=== PATIENT | female | born 1990 | race Caucasian/White ===

== ENCOUNTER 2024-05-03 08:35 | Emergency (ER) | payer BC, SELFPAY ==
[2024-05-03 08:40] VITALS: BP 152/89; PULSE 90; RESP 16; TEMP 36.4; O2SAT 99; BMI 35.3
--- NOTE | 2024-05-03 08:47 | ED_ITS ---
HPI - General Adult General Time Seen by Provider: 08:47 Date Seen: 05/03/24 Chief complaint: Shortness of Breath/Dyspnea Stated complaint: sharp pain in back/ difficulty breathing Time Seen by Provider: 05/03/24 08:47 Source: patient and RN notes reviewed Mode of arrival: ambulatory Limitations: no limitations History of Present Illness HPI narrative: This 33-year-old female is presenting to the ER with concern of sudden chest pain and pain into her back associated with breathing. She was just getting ready for the morning, pain just came on suddenly about 7:45 a.m. today. There is no reported trauma, she does not recollect doing anything that may have given her muscular issues over the weekend. She did travel to [place] about a month ago. She has had a grandparent that from a pulmonary embolus which made her concerned. The pain is on the right upper side of her back, she feels it in the right chest. The pain is always there but is certainly worse with inspiration. She has not been sick with any cough or cold symptoms. She has not had anything like this before. There is no chance for her patient's report. Related Data Previous Rx's ?Medication ?Instructions ?Recorded cyclobenzaprine 10 mg tablet 10 mg PO TID PRN muscle spasm #15 05/03/24 tabs ketorolac 10 mg tablet 10 mg PO Q6H PRN pain #20 tabs 05/03/24 Allergies Allergy/AdvReac Type Severity Reaction Status Date / Time No Known Drug Allergies Allergy Verified 05/03/24 09:35 Review of Systems Status of ROS: Reports: 6 or more systems reviewed and unremarkable except as noted in History and below [facility] Social History Smoking Status: Never smoker How often do you have a drink containing alcohol: 2-3 times a week How many standard drinks containing alcohol do you have on a typical day: 1 or 2 How often do you have six or more drinks on one occasion: Never AUDIT-C Alcohol total score: 3 Non-prescribed substance use: denies use Exam Const: Vital Signs, click to edit/add: Vital Signs - 24 hr 05/03/24 08:40 05/03/24 10:00 05/03/24 10:00 Temperature 97.5 F L Pulse Rate [Pulse Oximeter] 90 99 Respiratory Rate 16 16 Blood Pressure [Ri ght Upper Arm] 152/89 H 133/92 H Pulse Oximetry 99 99 100 Oxygen Delivery Me thod Room Air Room Air This 33-year-old female is alert, interactive, no apparent distress. She does seem to be mildly anxious. Sclera clear, symmetrical facial function, able to speak in complete sentences. She is not tachypneic. Lungs actually are clear, good air entry, no wheezing or crackles. CV regular rate and rhythm, no murmur, normal S1-S2, no S3-S4. Abdomen soft, nontender. She has no lower extremity edema. Patient is ambulatory into the ED of her own accord. There is no midline tenderness of her back, no reproducible tenderness in her upper back. Documenting provider has reviewed patient's vital signs: yes Course Course ED Course: Patient has just over an hour of right back and chest pain, some pleuritic component. She does have somewhat recent prolonged travel flying from [place] within the last 4 weeks. I do think thromboembolic disease does need to be a consideration. Have discussed doing screening D-dimer versus just doing chest CT PE protocol which patient has opted to do. I do think this is appropriate given her history and family history. Will also have her monitored on pulse oximetry, get full complement of labs. Will look at an EKG as well as a troponin but doubt any ischemic cardiac disease given presentation. Reevaluation(s) Time of Reevaluation #1: 10:02 Reevaluation #1: Patient CT is showing significant gallbladder pathology with gallstones, poss ibly thickened wall. Will obtain ultrasound. Have added on a lipase, her chemistries are not back yet. Will update her that she will be getting an ultrasound and insure that she does not need pain management. She notes that pain is somewhat improved lying still. There is still pleuritic component. She declines pain medicine, even Toradol at this time. She knows she will be proceeding with an ultrasound, have reviewed that this might be her gallbladder. Time of Reevaluation #2: 11:34 Reevaluation #2: Have provided patient with a copy of her ultrasound report as well. Her labs are reassuring, her pain is better here. Does seem to be a respiratory and positional component with this which would not be as typical for biliary colic. She is understanding that this may be atypical presentation of gallbladder disease. She is in agreement with trial for outpatient management. Will send her with some Toradol and Flexeril for potential musculoskeletal issues, pleurisy is in differential as well and Toradol would help that. She is not meeting criteria for pericarditis. Consultations Consultation #1: Reviewed patient's case with general surgeon Dr. Francis. She agrees with attempted outpatient management, treat for possible musculoskeletal versus pleurisy. She does recommend a low-fat diet in case this might be gallbladder. She would like to see patient in follow-up in clinic, will give phone number for that. Will give patient signs and symptoms for return, discuss possible biliary colic as well. Time: 11:14 Vital Signs Vital signs: Initial Vital Signs Temperature 97.5 F L 05/03/24 08:40 Temperature Source Oral 05/03/24 08:40 Pulse Rate 90 05/03/24 08:40 Respiratory Rate 16 05/03/24 08:40 Blood Pressure 152/89 H 05/03/24 08:40 Blood Pressure Mean 110 H 05/03/24 08:40 Blood Pressure Position Sitting 05/03/24 08:40 Pulse Oximetry 99 05/03/24 08:40 Oxygen Delivery Method Room Air 05/03/24 08:40 Vital Signs Temperature 97.5 F L 05/03/24 08:40 Pulse Rate 90 05/03/24 08:40 Respiratory Rate 16 05/03/24 08:40 Blood Pressure 152/89 H 05/03/24 08:40 Pulse Oximetry 99 05/03/24 08:40 Oxygen Delivery Method Room Air 05/03/24 08:40 Temperature 97.5 F L 05/03/24 08:40 Pulse Rate 99 05/03/24 10:00 Respiratory Rate 16 05/03/24 10:00 Blood Pressure 133/92 H 05/03/24 10:00 Pulse Oximetry 100 05/03/24 10:00 Oxygen Delivery Method Room Air 05/03/24 10:00 Medical Decision Making Lab Data Lab results reviewed: Yes I reviewed the patient's lab results Labs: Lab Results 05/03/24 05/03/24 Range/Units 09:25 10:02 WBC 7.00 (4.50-11.00) K/uL RBC 4.44 (4.00-5.20) m/uL Hgb 13.0 (12.0-16.0) gm/dL Hct 39.7 (33.0-51.0) % MCV 89 (80-100) fL MCH 29 (26-34) pg MCHC 33 (32-36) gm/dL RDW Coeff of Peri 12.4 (11.5-15.5) % Plt Count 323 (140-440) K/uL Neut % (Auto) 62.7 (42.0-72.0) % Lymph % (Auto) 27.3 (20-44) % Cole % (Auto) 8.4 (0.0-11.0) % Eos % (Auto) 1.1 (0.0-7.0) % Baso % (Auto) 0.4 (0.0-3.0) % Neut # (Auto) 4.38 (1.7-7.0) K/uL Lymph # (Auto) 1.91 (0.90-2.90) K/uL Cole # (Auto) 0.60 (0.00-0.90) K/UL Eos # (Auto) 0.08 (0.00-0.50) K/uL Baso # (Auto) 0.03 (0.00-0.30) K/uL Abs Immat Gran (auto) 0.01 (0.00-0.30) K/uL Imm/Tot Granulo (auto) 0.1 % D-Dimer Quant (PE/DVT) < 0.27 (0.00-0.50) ug/ml VBG pH 7.424 (7.32-7.43) VBG pCO2 33 L (40-50) mmHG VBG pO2 46.8 (25-47) mmHG VBG HCO3 22 (21-28) mmol/L Sodium 136 (135-149) mmol/L Potassium 3.8 (3.6-5.1) mmol/L Chloride 106 (96-114) mmol/L Carbon Dioxide 21 (20-32) mmol/L Anion Gap 9 (7-15) mEq/L BUN 9 (5-24) mg/dL Creatinine 0.6 (0.5-1.5) mg/dL Estimated Creat Clear 112.38 Estimated GFR 123 ml/min Glucose 96 (60-115) mg/dL Calcium 9.3 (8.4-10.6) mg/dL Total Bilirubin 0.2 (0.1-1.5) mg/dL AST 21 (12-35) U/L ALT 15 (4-35) U/L Alkaline Phosphatase 55 (40-150) U/L Troponin I < 0.01 L (0.01-0.04) ng/mL C-Reactive Protein 0.6 (0.5-1.0) mg/dL NT-Pro-B Natriuret Pep 85 pg/mL Total Protein 7.2 (6.0-8.3) g/dL Albumin 4.3 (3.3-5.0) g/dL Lipase 53 (23-300) U/L Lab Acknowledgement Test Added Imaging Data CT scan - chest: Attestation: I have reviewed the pertinent imaging results. Radiologist's impression: Patient: JONN VICTOR Facility:?[facility] Patient ID:?[id number] Site Patient ID:?[id number]. Site :?1990 Study:?CT-Chest Angio W/ 95CC [id number] PE PROTOCOL-05/03/2024 9:44:43 AM Ordering Physician:?Anamaria Middleton Final Report: INDICATION: Right-sided pain. Recent travel. COMPARISON: None TECHNIQUE: : CT examination of the chest was performed with the uneventful intravenous administration of 95 cc of Omnipaque 350 while thin axial sections were obtained from above the apices of the lungs to the lung bases. The examination was timed as a pulmonary artery angiogram. Please note that all CT scans at this facility use dose modulation, iterative reconstruction, and/or weight-based dosing when appropriate to reduce radiation dose to as low as reasonably achievable. FINDINGS: : HEART and MEDIASTINUM: The heart size is normal. There is no mediastinal or hilar adenopathy or mass. There is no pericardial effusion. PULMONARY ARTERIAL CIRCULATION: There is no visible intraluminal filling defect to suggest pulmonary embolus. LUNGS and PLEURAL SPACES: The lungs show no focal consolidation or mass. Trace basilar atelectasis. The airways appear normal.There is no pleural effusion, pneumothorax or pleural based mass. VISUALIZED UPPER ABDOMEN: The gallbladder is filled with stones and there may be wall thickening. Sonography is advised. OSSEOUS STRUCTURES: Age-appropriate appearance. No acute fracture or destructive process. TUBES and LINES: None. IMPRESSION: 1. No finding of pulmonary embolus. 2. Lungs and pleural spaces appear normal other than trace basilar atelectasis 3. The gallbladder is filled with stones and there may be wall thickening. Sonography is advised. Please note that all CT scans at this facility use dose modulation, iterative reconstruction, and/or weight-based dosing when appropriate to reduce radiation dose to as low as reasonably achievable. Dictated by Fritz Waite MD @ 05/03/2024 9:55:52 AM (Electronic Signature) US - abdomen: Attestation: I have reviewed the pertinent imaging results. Radiologist's impression: Patient: JONN VICTOR Facility:?[facility] Patient ID:?[id number] Site Patient ID:?[id number]. Site :?1990 Study:?US-Abdomen RUQ-05/03/2024 10:47:36 AM Ordering Physician:?Anamaria Middleton Final Report: Indication: Abnormal CT with cholelithiasis and right-sided pain noted on a chest CT. Technique: Sonography of the abdomen was performed limited to the structures discussed below Comparison: The CT of earlier the same day Findings: Normal-sized liver. No focal mass or biliary ductal dilation. The common duct measures 4 millimeters which is normal Gallbladder wall thickness is normal at 3 millimeters. No definite intramural edema or pericholecystic fluid. No reported sonographic Avery`s sign. The gallbladder is contracted containing too numerous to count stones. The pancreas as visualized appears normal. The right kidney is unremarkable in size and appearance measuring 9.5 x 5.2 x 3.9 centimeters. No hydronephrosis. Cortical thickness normal at 1.6 centimeters. Impression: There is cholelithiasis. There is no ultrasound finding to suggest acute cholecystitis or common duct obstruction. Dictated by Fritz Waite MD @ 05/03/2024 10:58:23 AM (Electronic Signature) ECG Data Attestation: I personally reviewed and interpreted this ECG as follows: (Normal sinus rhythm with sinus arrhythmia, 83 beats per minute. No ischemic change, no infarct.) Prior ECG tracings: not available for review Discharge Plan Discharge Clinical Impression: Right-sided chest pain Cholelithiasis Qualifiers: Cholelithiasis location: gallbladder Cholecystitis presence: without cholecystitis Biliary obstruction: without biliary obstruction Qualified Code(s): K80.20 - Calculus of gallbladder without cholecystitis without obstruction Patient Disposition: Home, Self-Care Condition: Stable Instructions: Pleurisy (ED), Gallstones (ED), Low Fat Diet (ED), Noncardiac Chest Pain (ED) Additional Instructions: Follow low-fat diet. It is unclear if your current symptoms might be coming from your gallbladder or biliary colic. Some features are consistent with pleurisy. It is possible that it could be musculoskeletal as well. We will heavy try Toradol and Flexeril for symptom control. You need to follow-up with general surgery in clinic, phone number to schedule is [phone]. In the meantime, if you have worsening symptoms, develops fever with these symptoms, have abdominal pain or nausea vomiting develops or further concerns, please return for further evaluation. Activity Level: Activity as Tolerated Discharge Diet: Low Fat/Low Cholesterol Prescriptions: New ketorolac 10 mg tablet 10 mg PO Q6H PRN (Reason: pain) Qty: 20 0RF Rx Instructions: maximum total duration of 5 days from all oral, intranasal, or parenteral formulations cyclobenzaprine 10 mg tablet 10 mg PO TID PRN (Reason: muscle spasm) Qty: 15 0RF Follow Up/Referrals: Sandra Gregory DO [Primary Care Provider] - Stand Alone Forms: [email or web address] Info Instructions
--- NOTE | 2024-05-03 08:52 | CRLHL7_ITS ---
For Patients: As a result of the Century Cures Act, medical imaging exams and procedure reports are released immediately into your electronic medical record. You may view this report before your referring provider. If you have questions, please contact your health care provider. INDICATION: Right-sided pain. Recent travel. COMPARISON: None TECHNIQUE: : CT examination of the chest was performed with the uneventful intravenous administration of 95 cc of Omnipaque 350 while thin axial sections were obtained from above the apices of the lungs to the lung bases. The examination was timed as a pulmonary artery angiogram. Please note that all CT scans at this facility use dose modulation, iterative reconstruction, and/or weight-based dosing when appropriate to reduce radiation dose to as low as reasonably achievable. FINDINGS: : HEART and MEDIASTINUM: The heart size is normal. There is no mediastinal or hilar adenopathy or mass. There is no pericardial effusion. PULMONARY ARTERIAL CIRCULATION: There is no visible intraluminal filling defect to suggest pulmonary embolus. LUNGS and PLEURAL SPACES: The lungs show no focal consolidation or mass. Trace basilar atelectasis. The airways appear normal.There is no pleural effusion, pneumothorax or pleural based mass. VISUALIZED UPPER ABDOMEN: The gallbladder is filled with stones and there may be wall thickening. Sonography is advised. OSSEOUS STRUCTURES: Age-appropriate appearance. No acute fracture or destructive process. TUBES and LINES: None. IMPRESSION: 1. No finding of pulmonary embolus. 2. Lungs and pleural spaces appear normal other than trace basilar atelectasis 3. The gallbladder is filled with stones and there may be wall thickening. Sonography is advised. Please note that all CT scans at this facility use dose modulation, iterative reconstruction, and/or weight-based dosing when appropriate to reduce radiation dose to as low as reasonably achievable. Dictated by Fritz Waite MD @ 05/03/2024 9:55:52 AM (Electronically Signed)
[2024-05-03 09:37] LABS: HCO3 VBG 22 mmol/L (21-28); PCO2 VBG 33 mmHG (40-50); PO2 VBG 46.8 mmHG (25-47); pH VBG 7.424 (7.32-7.43)
[2024-05-03 09:44] LABS: Basophils Absolute Auto 0.03 K/uL (0.00-0.30); Basophils Percent Auto 0.4 % (0.0-3.0); Eosinophils Absolute Auto 0.08 K/uL (0.00-0.50); Eosinophils Percent Auto 1.1 % (0.0-7.0); Hematocrit 39.7 % (33.0-51.0); Immature Granulocytes Abs Auto 0.01 K/uL (0.00-0.30); Immature Granulocytes Pct Auto 0.1 %; Lymphocytes Absolute Auto 1.91 K/uL (0.90-2.90); Lymphocytes Percent Auto 27.3 % (20-44); Mean Corpuscular HGB Conc 33 gm/dL (32-36); Mean Corpuscular Hemoglobin 29 pg (26-34); Mean Corpuscular Volume 89 fL (80-100); Monocytes Percent Auto 8.4 % (0.0-11.0); Neutrophils Absolute Auto 4.38 K/uL (1.7-7.0); Neutrophils Percent Auto 62.7 % (42.0-72.0); Platelet Count* 323 K/uL (140-440); RDW Coefficient of Variation % 12.4 % (11.5-15.5); Red Blood Count 4.44 m/uL (4.00-5.20)
[2024-05-03 09:52] LABS: Slide Review Reflex No
[2024-05-03 09:55] LABS: Albumin* 4.3 g/dL (3.3-5.0); Chloride* 106 mmol/L (96-114)
[2024-05-03 09:56] LABS: Potassium* 3.8 mmol/L (3.6-5.1); Sodium* 136 mmol/L (135-149)
[2024-05-03 09:58] LABS: Bilirubin Total* 0.2 mg/dL (0.1-1.5); Creatinine* 0.6 mg/dL (0.5-1.5); Est. Creatinine Clearance* 112.38; Estimated Glomerular Filt Rate 123 ml/min
[2024-05-03 09:59] LABS: Alanine Aminotransferase* 15 U/L (4-35); Alkaline Phosphatase* 55 U/L (40-150); Anion Gap 9 mEq/L (7-15); Aspartate Amino Transferase* 21 U/L (12-35); Blood Urea Nitrogen* 9 mg/dL (5-24); Calcium* 9.3 mg/dL (8.4-10.6); Carbon Dioxide* 21 mmol/L (20-32); Glucose* 96 mg/dL (60-115); Total Protein* 7.2 g/dL (6.0-8.3)
[2024-05-03 10:00] VITALS: BP 133/92; PULSE 99; RESP 16; O2SAT 100; O2SAT 99
[2024-05-03 10:02] LABS: C Reactive Protein* 0.6 mg/dL (0.5-1.0)
--- NOTE | 2024-05-03 10:02 | CRLHL7_ITS ---
For Patients: As a result of the Century Cures Act, medical imaging exams and procedure reports are released immediately into your electronic medical record. You may view this report before your referring provider. If you have questions, please contact your health care provider. Indication: Abnormal CT with cholelithiasis and right-sided pain noted on a chest CT. Technique: Sonography of the abdomen was performed limited to the structures discussed below Comparison: The CT of earlier the same day Findings: Normal-sized liver. No focal mass or biliary ductal dilation. The common duct measures 4 millimeters which is normal Gallbladder wall thickness is normal at 3 millimeters. No definite intramural edema or pericholecystic fluid. No reported sonographic Avery`s sign. The gallbladder is contracted containing too numerous to count stones. The pancreas as visualized appears normal. The right kidney is unremarkable in size and appearance measuring 9.5 x 5.2 x 3.9 centimeters. No hydronephrosis. Cortical thickness normal at 1.6 centimeters. Impression: There is cholelithiasis. There is no ultrasound finding to suggest acute cholecystitis or common duct obstruction. Dictated by Fritz Waite MD @ 05/03/2024 10:58:23 AM (Electronically Signed)
[2024-05-03 10:07] LABS: D Dimer Quantitative* < 0.27 ug/ml (0.00-0.50)
[2024-05-03 10:13] LABS: NT Pro B Type NatriureticPept* 85 pg/mL; Troponin I* < 0.01 ng/mL (0.01-0.04)
[2024-05-03 10:34] LABS: Lipase* 53 U/L (23-300)
== END 2024-05-03 11:47 | disposition home or self-care (01) ==
PROVIDERS: Emergency Provider Family Medicine; PCP Family Medicine
DX: K80.20 Calculus of gallbladder without cholecystitis without obstruction (principal)
CPT/HCPCS: 36415; 71275; 76705; 80053; 82803; 83690; 83880; 84484; 85025; 85379; 86140; 93005; 94761; 99284; 99285; Q9967

== ENCOUNTER 2024-05-25 07:37 | Day surgery (SDC) | payer BC, SELFPAY ==
[2024-05-25] VITALS (13 sets, daily range): BP systolic 94–135; BP diastolic 52–96; PULSE 79–114; RESP 12–16; TEMP 36.3–36.6; O2SAT 95–100; BMI 34.8
[2024-05-25] MEDS: 0.9 % SODIUM CHLORIDE 500 ML 500 ML 100 ML IV (07:59)
[2024-05-25 08:11] LABS: Ur HCG Qualitative* Negative (Negative)
[2024-05-25] MEDS: SODIUM CHLORIDE 0.9 % (FLUSH) 10 ML SYRINGE IVF (08:23)
--- NOTE | 2024-05-25 09:27 | W.PM.H&PU ---
History & Physical Update History & Physical Update H&P Reviewed and patient assessed: No changes noted
[2024-05-25] MEDS: CEFAZOLIN 2 GM INJ IVP (09:55)
[2024-05-25] MEDS: BUPIVACAINE 0.5% 30 ML INJECTION (10:11)
--- NOTE | 2024-05-25 10:59 | W.ANESCHARGE ---
Anesthesia Charges Start Date/Time Anesthesia Start Date: 05/25/24 Anesthesia Start Time: 09:51 Stop Date/Time Anesthesia Stop Date: 05/25/24 Anesthesia Stop Time: 11:05
--- NOTE | 2024-05-25 11:01 | PM.GSPRC ---
Operative Note Date of procedure: 05/25/24 Pre-op diagnosis: Biliary colic Post-op diagnosis: Same Type of Procedure: Laparoscopic cholecystectomy Indications: Patient is a 33-year-old female with clinical workup and symptoms consistent with biliary colic. Risks and benefits of operative intervention were discussed at length with the patient. Risks included but was not limited to: Bleeding, infection, risk of damage to surrounding structures, possible need for additional procedures, possible need to convert to an open operation and postoperative complications such as pneumonia, pulmonary emboli or ME. All questions and concerns were addressed with the patient agreeing to proceed. Procedure Description: After discussing the risks and benefits of the procedure, the patient signed informed consent.? The operative site was marked and the patient was brought to the operating room and placed on the operating table in supine position.? Care was taken to pad the patient's pressure points.?? The patient was then intubated by anesthesia.?? The operative site was then prepped and draped in the usual sterile fashion.? A time-out was then performed. Entrance to the abdomen was gained via a 5 mm Visiport in the left upper quadrant. The abdomen was insufflated and briefly surveyed for signs of injury. There was none. 11 mm umbilical port was placed as well as 2 working ports along the right costal margin. Patient was then placed in reverse Trendelenburg position with the right side up. The gallbladder fundus was grasped and retracted cephalad. The infundibulum was grasped. A combination of hook cautery and blunt dissection was used to carefully dissect out the cystic duct and artery until they could clearly be seen entering the gallbladder without any intervening structures. The gallbladder was dissected off the cystic plate to achieve the critical view. Once this was achieved the cystic duct and artery were each clipped with 2 clips proximally and 1 clip distally and transected with the scissors. The gallbladder was then taken off of the liver bed. And removed from the abdomen using an Endo-Catch bag. The gallbladder bed was surveyed for hemostasis, which was excellent. The ports were then removed under direct vision. The umbilical port fascia was closed with 0 Vicryl. The skin was closed with absorbable subcuticular suture. Instrument sponge and needle counts were correct at the end of the case. The patient was then woken and transferred to the PACU in stable condition. Findings: Normal gallbladder. Anesthesia: GETA Surgeon: Anais Francis MD Estimated blood loss (mL): 5 Specimen: Gallbladder Condition: stable Disposition: PACU
--- NOTE | 2024-05-25 11:02 | W.ANESCHARGE ---
Anesthesia Charges Start Date/Time Anesthesia Start Date: 05/25/24 Anesthesia Start Time: 09:51 Stop Date/Time Anesthesia Stop Date: 05/25/24 Anesthesia Stop Time: 11:05
[2024-05-25] MEDS: ONDANSETRON 2 MG/ML inj 4 MG IVP (11:07)
--- NOTE | 2024-05-25 11:37 | SUR.PHASEI ---
patient met discharge criteria per anesthesia
[2024-05-25] MEDS: HYDROCODONE-ACETAMIN 5-325 MG 1 TAB PO (11:55)
== END 2024-05-25 13:10 | disposition home or self-care (01) ==
PROVIDERS: Anesthesiology; PCP Family Medicine; Visit Provider Surgery
PROC: 0FT44ZZ Resection of Gallbladder, Percutaneous Endoscopic Approach (ICD-10-PCS; CPT 47562; principal; 2024-05-25 09:00)
DX: K80.10 Calculus of gallbladder with chronic cholecystitis without obstruction (principal)
CPT/HCPCS: 47562; 00790; 81025; 88304; A9270; J0330; J0665; J0690; J1100; J1171; J1885; J2250; J2405; J2704; J2710; J3010; J7030